=== PATIENT | female | born 1985 | race Asian ===

== ENCOUNTER 2017-01-26 01:43 | Emergency (ER) | payer BC ==
[~2017-01-26] VITALS: Ht 160 cm; Wt 52.2 kg
[2017-01-26 02:54] VITALS: BP 137/86
== END 2017-01-26 02:54 | disposition home or self-care (01) ==
LOC: ED 01:43
DX: R07.89 Other chest pain (principal); Z88.0 Allergy status to penicillin
CPT/HCPCS: J1885